=== PATIENT | male | born 1940 | race Caucasian/White ===

== ENCOUNTER 2020-04-04 08:50 | Outpatient (CLI) | payer MEDICARE, SELFPAY ==
--- NOTE | ~2020-04-04 | MR_ITS ---
EXAMINATION: MR brain/brain stem wo basilia EXAM DATE: 04/04/2020 11:39 INDICATION: Memory loss. Passed out 2 weeks ago. History of strokes. History of acoustic neuroma laura todd. TECHNIQUE: Magnetic resonance imaging (MRI) of the brain/brain stem obtained without contrast. Palomo al T1, axial diffusion, gradient echo (T2*), T1, T2, FLAIR sequences obtained. There is no prior st udy for comparison. FINDINGS: There are no areas of restricted diffusion to suggest acute infarction. There is no acute hemorrhage seen on the T2*, a hemosiderin sensitive sequence. No intraparenchymal brain mass lesion. There is punctate old left cerebellar infarction. Dilated perivascular spaces in deep white matter. There is mild to moderate periventricular and subcortical T2/FLAIR signal hyperintensity, nonspecifi c but probably related to small vessel ischemic disease (microangiopathy). There is mild to moderat e prominence of the sulci and ventricles related to cerebral atrophy. There are no extra-axial rosario ections. Flow voids are seen in the cerebral arteries on the T2-weighted sequences consistent with t heir expected patency. Patient has had bilateral ocular lens surgery. Soft tissue is unremarkable. Right-sided mastoidectomy. There is small right maxillary sinus retention cyst or polyp. IMPRESSION: 1. No acute intracranial findings. 2. Chronic age related findings. Reviewed, dictated and finalized at location B. 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
--- NOTE | 2020-04-05 09:32 | WPDNEUROLOGY ---
Neurology EEG Report General Information Date of Study: 04/04/20 TEST eeg DIAGNOSIS memory loss CONDITION OF RECORDING awake, drowsy and sleep EEG NUMBER [id number] CLINICAL HISTORY patient reported , loss of consciousness about a month ago but does not remember much else about the episode EEG DESCRIPTION basic resting occipital frequency consisted of low to medium voltage 8 to 9 hertz per second alpha admixed with lowto medium to medium voltage 6 to 7 hertz per second theta. Bilateral symmetrical sleep activity seen during sleep, hyperventilation not done photic stimulation produced normal drive ,multiple muscle artifacts are seen. non paroxysmal, nonfocal, nonlateralizing . Impression no significant abnormalities noted
== END 2020-04-04 08:51 | disposition home or self-care (01) ==
PROVIDERS: PCP Internal Medicine; Visit Provider Psychiatry & Neurology Neurology
DX: R41.3 Other amnesia (principal)
CPT/HCPCS: 70551; 95816

== ENCOUNTER 2021-07-11 12:26 | Outpatient (CLI) | payer MEDICARE, SELFPAY ==
--- NOTE | ~2021-07-11 | CT_ITS ---
EXAMINATION: CT brain wo con EXAM DATE: 07/11/2021 14:11 INDICATION: R44.3 - Hallucinations, unspecified . TECHNIQUE: Spiral CT of the head was performed without contrast. Axial, coronal and sagittal images were reviewed. The dose-length product (DLP) for this examination was 681.00 mGy-cm. The exposure w as tailored according to patient size, and iterative reconstruction (ASIR) was used as additional dos e reduction technique. There is no prior study for comparison. FINDINGS: Small old left cerebellar infarction. Punctate old right caudate infarction. There is no ac chalo intraparenchymal hemorrhage. No evidence of intraparenchymal brain mass lesion. No evidence of acute infarction. Please note that initial head CT has limited sensitivity for small or acute infarc tions. There is mild to moderate periventricular and subcortical hypodensity, nonspecific but probabl y related to small vessel ischemic disease. There is moderate prominence of the sulci and ventricle s related to cerebral atrophy. There is intracranial carotid arteriosclerosis. There are no extra- axial collections. There is no mass effect or midline shift. The orbits are unremarkable. Soft tis marianna is unremarkable. Small to moderate-sized right maxillary sinus retention cyst or polyp. IMPRESSION: 1. Small old left cerebellar, punctate right caudate infarctions. 2. Chronic age related findings. Reviewed, dictated and finalized at location B. 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
--- NOTE | 2021-07-12 08:42 | WPDNEUROLOGY ---
Neurology EEG Report General Information Date of Study: 07/11/21 TEST eeg DIAGNOSIS Hallucinations CONDITION OF RECORDING Awake drowsy and sleep EEG NUMBER [id number] CLINICAL HISTORY patient reported, he loss consciousness about a month ago. Can not remember what the diagnosis was when he was discharged from [facility]. EEG DESCRIPTION basic resting occipital frequency consists of large amount of well-organized low to medium voltage 8 to 10 hertz per 2nd alpha admixed with low to medium voltage 6 to 7 hertz per 2nd theta and low-voltage 15 to 18 hertz per 2nd beta activity. Bilateral symmetrical sleep activity seen during sleep. Hyperventilation not done. Photic stimulation produced normal driving. Non paroxysmal. Nonfocal. Nonlateralizing. IMPRESSION No significant abnormalities noted
== END 2021-07-11 12:27 | disposition home or self-care (01) ==
PROVIDERS: PCP Internal Medicine; Visit Provider Psychiatry & Neurology Neurology
DX: R44.3 Hallucinations, unspecified (principal); I63.9 Cerebral infarction, unspecified
CPT/HCPCS: 70450; 95816

== ENCOUNTER 2021-12-14 12:31 | Outpatient (CLI) | payer MEDICARE, SELFPAY ==
--- NOTE | 2021-12-18 10:14 | WPDNEUROLOGY ---
Neurology EEG Report General Information Date of Study: 12/14/21 TEST EEG DIAGNOSIS seizures CONDITION OF RECORDING awake drowsy and sleep EEG NUMBER [id number] CLINICAL HISTORY patient reports he is having spells of losing consciousness EEG DESCRIPTION basic resting occipital frequency consists of minimal amount of low voltage 8 to 10 hertz per 2nd alpha admixed with low-voltage 15 to 18 hertz per 2nd beta. Low-voltage beta witty seen diffusely during drowsiness. Bilateral symmetrical sleep activity seen during sleep. Hyperventilation not done. Photic stimulation produced normal drive. Non paroxysmal. Nonfocal. Nonlateralizing. IMPRESSION No significant abnormalities noted
== END 2021-12-14 12:32 | disposition home or self-care (01) ==
PROVIDERS: PCP Internal Medicine; Visit Provider Psychiatry & Neurology Neurology
DX: G40.911 Epilepsy, unspecified, intractable, with status epilepticus (principal)
CPT/HCPCS: 95816